=== PATIENT | female | born 1945 | race Caucasian/White ===

== ENCOUNTER 2017-02-01 09:59 | Emergency (ER) | payer MEDICAID, OTHER ==
[~2017-02-01] VITALS: Ht 165.1 cm; Wt 73.5 kg
[~2017-02-01 09:59] MED LIST: AMIT10TA6 PO; ASPI81TA50 PO; BENA20TA48 PO; DESL5TAB20 PO; FERR325T83 PO; HYDR25TA6 PO; IBUP400T22 PO; LEVO25TA53 PO; METF-164 PO; RANI150C11 PO; SIMV20TA2 PO
[2017-02-01 10:07] VITALS: Ht 165.1 cm; Wt 73.5 kg
[2017-02-01] MEDS ORDERED: SOD CHLORIDE 0.9% 1,000 ML IV STA (12:24)
[2017-02-01] MEDS ORDERED: ONDANSETRON 4 MG INJ IV STA (12:24)
[2017-02-01] MEDS ORDERED: morphine 4 MG/ML VIAL IV STA (12:24)
[2017-02-01] MEDS ORDERED: LOPERAMIDE 2 MG CAP PO ONE (12:30)
[2017-02-01 12:41] LABS: BASOPHIL # 0.1 10^3/ul (0.0-0.1); BASOPHILS % 0.8 % (0.0-2.0); EOSINOPHILS # 0.1 10^3/ul (0.0-0.5); EOSINOPHILS % 1.7 % (0.0-7.0); HEMOGLOBIN 13.4 g/dl (12.0-16.0); LYMPHOCYTES # 1.9 10^3/ul (0.8-2.9); LYMPHOCYTES % 29.9 % (15.0-51.0); MEAN CORPUSCULAR HEMOGLOBIN 28.4 pg (29.0-33.0); MEAN CORPUSCULAR HGB CONC 33.5 g/dl (32.0-37.0); MEAN CORPUSCULAR VOLUME 84.7 fl (82.0-101.0); MEAN PLATELET VOLUME 10.9 fl (7.4-10.4); MONOCYTE # 0.8 10^3/ul (0.3-0.9); MONOCYTES % 12.2 % (0.0-11.0); NEUTROPHIL # 3.6 10^3/ul (1.6-7.5); NEUTROPHILS % 54.9 % (39.0-77.0); PLATELET COUNT 113 10^3/UL (140-415); RED BLOOD COUNT 4.72 10^6/ul (4.20-5.40); RED CELL DISTRIBUTION WIDTH 13.4 % (11.5-14.5); WHITE BLOOD COUNT 6.5 10^3/ul (4.8-10.8)
[2017-02-01 12:56] LABS: ALANINE AMINOTRANSFERASE 34 IU/L (13-69); ALBUMIN 4.5 g/dl (3.3-4.9); ALBUMIN/GLOBULIN RATIO 1.15; ALKALINE PHOSPHATASE 87 IU/L (42-121); ANION GAP 24 (8-16); ASPARTATE AMINO TRANSFERASE 33 IU/L (15-46); BILIRUBIN,INDIRECT 0.1 mg/dl (0-1.1); BILIRUBIN,TOTAL 0.1 mg/dl (0.2-1.3); BLOOD UREA NITROGEN 29 mg/dl (7-20); CALCIUM 9.3 mg/dl (8.4-10.2); CARBON DIOXIDE 23 mmol/L (21-31); CHLORIDE 94 mmol/L (97-110); CREATININE 1.99 mg/dl (0.44-1.00); GLUCOSE 197 mg/dl (70-220); POTASSIUM 3.9 mmol/L (3.5-5.1); SODIUM 137 mmol/L (135-144); TOTAL PROTEIN 8.4 g/dl (6.1-8.1)
[2017-02-01 13:15] LABS: TROPONIN-I < 0.012 ng/ml (0.00-0.12)
[2017-02-01 13:21] VITALS: BP 120/70; PULSE 79; RESP 20; TEMP 98.3
--- NOTE | 2017-02-01 13:48 | RADRPT ---
PROCEDURE: CT Abdomen and Pelvis without contrast. CLINICAL INDICATION: Abdominal pain and watery diarrhea. TECHNIQUE: CT scan of the abdomen and pelvis without contrast was performed on a multidetector hig h-resolution CT scanner. The patient was scanned without intravenous contrast. Coronal and sagittal reformatted images were obtained from the axial source images. Images were reviewed on a high-resol [employer] PACS workstation. The total exam CTDI equals 17.15 mGy and the total exam DLP equals 995.5 mGy -cm. One or more of the following dose reduction techniques were used: Automated exposure control. Adjustment of the mA and/or kV according to patient size. Use of iterative reconstruction technique. COMPARISON: None FINDINGS: CT abdomen: The lung bases are clear. The heart size is normal, without pericardial thickening or effusion. There is fatty infiltration of the liver. The spleen is normal in size and homogeneous in density. The stomach is partially collapsed, but is grossly unremarkable. The pancreas as visualized is norm al. The gallbladder is unremarkable. There is no evidence for biliary dilatation. The adrenal glan ds are symmetric and normal. The kidneys are symmetrically unremarkable as well. No renal calculus or obstructive uropathy or mass lesion is seen. There is approximately 3 cm exophytic cyst in the u pper pole left kidney. The aorta is of normal caliber. Aortic vascular calcifications are present. There is no retroperit pearson lymphadenopathy. The adi hepatis region is clear. There is normal wall thickening of the d istal transverse, and descending colon with subtle pericolonic fatty stranding suggesting mild colit is. There is a small hiatal hernia. There is a fat containing periumbilical hernia. CT pelvis: The small bowel loops situated within the pelvis are unremarkable. The appendix is normal. The pelvi c organs are normal. The pelvic sidewalls and inguinal regions are clear. There is approximately 3 .3 cm exophytic fibroid arising from the right aspect of the uterine body. The sigmoid colon and re ctum are remarkable for scattered sigmoid diverticula without evidence of acute diverticulitis. No mass, lymphadenopathy, or free fluid is seen. The surrounding osseous structures are remarkable for degenerative spondylosis of the spine. No osteolytic or osteoblastic lesion is detected. IMPRESSION: 1. Mild abnormal wall thickening of the distal transverse and descending colon with subtle pericolo fidelia fatty stranding suggesting mild colitis. This is somewhat accentuated by the under distension o f the colon. 2. Scattered diverticula in the proximal sigmoid colon without acute diverticulitis. 3. Fat containing periumbilical hernia. 4. Fatty liver. 5. Small hiatal hernia. 6. Normal appendix. RPTAT: BB .Brian Sagastume MD, Date Time Electronically viewed and signed by .Brian Sagastume MD, on 02/01/2017 13:48 .O/
[2017-02-01] MEDS ORDERED: metroNIDAZOLE 500 MG TAB PO ONE (14:00)
[2017-02-01] MEDS ORDERED: CIPROFLOXACIN 500 MG TAB PO ONE (14:00)
[2017-02-01] MEDS ORDERED: HYDR-902 PO (14:02)
[2017-02-01] MEDS ORDERED: CIPR500T4 PO (14:02)
[2017-02-01] MEDS ORDERED: ONDA4TAB14 PO (14:02)
[2017-02-01] MEDS ORDERED: METR500T PO (14:02)
--- NOTE | 2017-02-01 14:54 | ERD ---
ER Documentation Chief Complaint Date/Time DATE: 02/01/17 TIME: 14:52 Chief Complaint Complains of abdominal pain x 3 days HPI Patient is a 71-year-old female with hypertension, diabetes, and high cholesterol presents with diarrhea and abdominal pain. She has had diarrhea for the past 5 days. She has mild abdominal pain diffusely. She has had nausea but no vomiting. She denies fevers. She tried Pepto-Bismol for her pain. Upon review of old medical records this is the patient's third visit to the ER since 2010. She does not know the name of her primary doctor. ROS All systems reviewed and are negative except as per history of present illness. Medications Home Meds Active Scripts Ondansetron (Ondansetron Odt) 4 Mg Tab.rapdis, 4 MG PO Q6H Y for NAUSEA AND/OR VOMITING, #30 TAB Prov:ILIANA SENA MD 02/01/17 Hydrocodone/Acetaminophen (Mongo 10-325 Tablet) 1 Each Tablet, 1 TAB PO Q6H Y for PAIN, #7 TAB Prov:ILIANA SENA MD 02/01/17 Metronidazole* (Flagyl*) 500 Mg Tablet, 500 MG PO TID for 7 Days, TAB Prov:ILIANA SENA MD 02/01/17 Ciprofloxacin Hcl* (Ciprofloxacin Hcl*) 500 Mg Tablet, 500 MG PO BID for 7 Days , TAB Prov:ILIANA SENA MD 02/01/17 Reported Medications Ibuprofen* (Ibuprofen*) 400 Mg Tablet, 1 TAB PO TID PRN 04/18/12 Amitriptyline Hcl* (Amitriptyline Hcl*) 10 Mg Tablet, 1 TAB PO DAILY 04/18/12 Ferrous Sulfate (Ridosol) 325 Mg Tablet, 1 TAB PO DAILY, 0 Refills 07/24/10 Desloratadine (Clarinex) 5 Mg Tablet, 1 TAB PO DAILY, 0 Refills 07/24/10 Hydrochlorothiazide (Hydrochlorothiazide) 25 Mg Tablet, 1 TAB PO DAILY, 0 Refills 07/24/10 Levothyroxine Sodium* (Levothyroxine Sodium*) 25 Mcg Tablet, 1 TAB PO DAILY, 0 Refills 07/24/10 Metformin Hcl* (Fortamet*) 1,000 Mg/Bottle Tab.osm.24, 1 TAB PO BID, 0 Refills 07/24/10 Ranitidine Hcl (Ranitidine Hcl) 150 Mg Capsule, 1 TAB PO BID, 0 Refills 07/24/10 Aspirin (Aspir-Low) 81 Mg Tablet.dr, 1 TAB PO DAILY, 0 Refills 07/24/10 Simvastatin (Simvastatin) 20 Mg Tablet, 1 TAB PO DAILY, 0 Refills 07/24/10 Benazepril Hcl* (Benazepril Hcl*) 20 Mg Tablet, 1 TAB PO BID, 0 Refills 07/24/10 Allergies Allergies: Coded Allergies: No Known Allergy (Verified , 04/18/12) PMhx/Soc History of Surgery: No Anesthesia Reaction: No Hx Neurological Disorder: No Hx Respiratory Disorders: No Hx Cardiac Disorders: Yes (HTN, HYPERLIPIDEMIA) Hx Psychiatric Problems: No Hx Miscellaneous Medical Probl: Yes (DM, "THYROID D/O") Hx Alcohol Use: No Hx Substance Use: No Hx Tobacco Use: No Smoking Status: Never smoker FmHx Family History: No diabetes Physical Exam Vitals Vital Signs Date Time Temp Pulse Resp B/P Pulse Ox O2 Delivery O2 Flow Rate FiO2 02/01/17 13:21 98.3 79 20 120/70 97 Room Air 02/01/17 10:07 98.3 90 20 121/72 96 Physical Exam Const: Mild distress Head: Atraumatic Eyes: Normal Conjunctiva ENT: Normal External Ears, Nose and Mouth. Neck: Full range of motion..~ No meningismus. Resp: Clear to auscultation bilaterally Cardio: Regular rate and rhythm, no murmurs Abd: Soft, diffuse tenderness to palpation without rebound or guarding Skin: No petechiae or rashes Back: No midline or flank tenderness Ext: No cyanosis, or edema Neur: Awake and alert Psych: Normal Mood and Affect Result Diagram: 02/01/17 1228 02/01/17 1228 Results 24 hrs Laboratory Tests Test 02/01/17 12:28 White Blood Count 6.510^3/ul Red Blood Count 4.7210^6/ul Hemoglobin 13.4g/dl Hematocrit 40.0% Mean Corpuscular Volume 84.7fl Mean Corpuscular Hemoglobin 28.4pg Mean Corpuscular Hemoglobin Concent 33.5g/dl Red Cell Distribution Width 13.4% Platelet Count 98257^3/UL Mean Platelet Volume 10.9fl Neutrophils % 54.9% Lymphocytes % 29.9% Monocytes % 12.2% Eosinophils % 1.7% Basophils % 0.8% Nucleated Red Blood Cells % 0.0/100WBC Neutrophils # 3.610^3/ul Lymphocytes # 1.910^3/ul Monocytes # 0.810^3/ul Eosinophils # 0.110^3/ul Basophils # 0.110^3/ul Nucleated Red Blood Cells # 0.010^3/ul Sodium Level 137mmol/L Potassium Level 3.9mmol/L Chloride Level 94mmol/L Carbon Dioxide Level 23mmol/L Anion Gap 24 Blood Urea Nitrogen 29mg/dl Creatinine 1.99mg/dl Glucose Level 197mg/dl Calcium Level 9.3mg/dl Total Bilirubin 0.1mg/dl Direct Bilirubin 0.00mg/dl Indirect Bilirubin 0.1mg/dl Aspartate Amino Transf (AST/SGOT) 33IU/L Alanine Aminotransferase (ALT/SGPT) 34IU/L Alkaline Phosphatase 87IU/L Troponin I < 0.012ng/ml Total Protein 8.4g/dl Albumin 4.5g/dl Globulin 3.90g/dl Albumin/Globulin Ratio 1.15 Lipase 53U/L Current Medications Medications (Trade) Dose Ordered Sig/Trice Route PRN Reason Start Time Stop Time Status Last Admin Dose Admin Sodium Chloride (NS) 1,000 ml @ 1,000 mls/hr Q1H STAT IV 02/01/17 12:24 02/01/17 13:23 DC 02/01/17 12:41 Morphine Sulfate (morphine) 4 mg ONCE STAT IV 02/01/17 12:24 02/01/17 12:25 DC 02/01/17 12:37 Ondansetron HCl (Zofran Inj) 4 mg ONCE STAT IV 02/01/17 12:24 02/01/17 12:25 DC 02/01/17 12:37 Loperamide HCl (Imodium Cap) 2 mg ONCE ONCE PO 02/01/17 12:30 02/01/17 12:31 DC 02/01/17 12:37 Ciprofloxacin (Cipro) 500 mg ONCE ONCE PO 02/01/17 14:00 02/01/17 14:01 DC 02/01/17 14:12 Metronidazole (Flagyl) 500 mg ONCE ONCE PO 02/01/17 14:00 02/01/17 14:01 DC 02/01/17 14:17 Procedures/MDM CT scan shows mild colitis per radiology. Patient is a 71-year-old female presents with diarrhea and abdominal pain. She was found to have a mild colitis. At this point I believe outpatient management is appropriate and I do not believe the patient requires admission. She feels much better. Her vital signs are normal. The patient will be given a prescription for Cipro and Flagyl for a one-week course and the first doses were given in the emergency department. The patient was given Mongo and Zofran for symptomatic relief as well. She will need to follow-up with her primary doctor within 24 hours and can return sooner if symptoms worsen. Departure Diagnosis: Primary Impression: Colitis Additional Impressions: Diarrhea Diarrhea type: infectious Qualified Code: A09 - Diarrhea of infectious origin Abdominal pain Abdominal location: generalized Qualified Code: R10.84 - Generalized abdominal pain Condition: Fair Patient Instructions: Diverticulitis Referrals: Your doctor Additional Instructions: Visite a mitchell dorcas wiseman para un EXAMEN.Regrese a estas instalaciones si no se mejora laura esperbamos o laura tosha chesters. ILIANA SENA MD Feb 01, 2017 14:54
== END 2017-02-01 14:24 | disposition home or self-care (01) ==
LOC: E/R 09:59
DX: A09 Infectious gastroenteritis and colitis, unspecified (principal); I10 Essential (primary) hypertension; E11.9 Type 2 diabetes mellitus without complications; Z79.82 Long term (current) use of aspirin; Z79.84 Long term (current) use of oral hypoglycemic drugs
CPT/HCPCS: 36415; 74176; 80053; 83690; 84484; 85025; 96374; 96375; J2270; J2405; J7030; Z7502; Z7610

== ENCOUNTER 2017-08-07 07:14 | Day surgery (SDC) | END 2017-08-07 10:18 | disposition home or self-care (01) ==

== ENCOUNTER 2017-09-09 12:53 | Emergency (ER) | END 2017-09-09 16:21 | disposition home or self-care (01) ==